=== PATIENT | male | born 1965 | race Caucasian/White ===

== ENCOUNTER 2021-04-16 09:57 | Inpatient (IN) | payer OTHER ==
[~2021-04-16] VITALS: Ht 185.4 cm; Wt 97.7 kg
[~2021-04-16 09:57] MED LIST: RINGERS SOLUTION,LACTATED 1,000 ML IV ONE
[2021-04-16] MEDS ORDERED: RINGERS SOLUTION,LACTATED 1,000 ML IV ONE ×2 (10:00→15:23)
[2021-04-16 11:48] LABS: COVID AG,FIA SOURCE NASOPHARYNGEAL
[2021-04-16] MEDS ORDERED: PROPOFOL 1000 MG/ISO-OSM 200 ML ONE (11:54)
[2021-04-16] MEDS ORDERED: ROCURONIUM BROMIDE 10 MG/ML 5 ML VIAL IVP ONE (12:00)
[2021-04-16] MEDS ORDERED: LIDOCAINE/PF 2% 5 ML VIAL IM ONE (12:00)
[2021-04-16] MEDS ORDERED: SUCCINYLCHOLINE CHLORIDE 20 MG/ML 10 ML VIAL IVP ONE (12:00)
[2021-04-16] MEDS ORDERED: PROPOFOL 1% 20 ML VIAL IVP ONE (12:00)
[2021-04-16] MEDS ORDERED: DEXAMETHASONE SOD PHOS 4 MG/ML VIAL IVP ONE (12:00)
[2021-04-16] MEDS ORDERED: ONDANSETRON HCL 4 MG/2 ML VIAL IVP ONE (12:00)
[2021-04-16] MEDS ORDERED: ACETAMINOPHEN 1000 MG/ISO-OSM 100 ML IV ONE (13:06)
[2021-04-16] MEDS ORDERED: PROPOFOL 1000 MG/ISO-OSM 100 ML ONE (15:55)
[2021-04-16] MEDS ORDERED: MEPERIDINE-PF 25 MG/ML VIAL IVP PRN (17:00)
[2021-04-16] MEDS ORDERED: FentaNYL CITRATE PF 100 MCG/2 ML VIAL IVP PRN (17:00)
[2021-04-16] MEDS ORDERED: HYDROmorphone 2 MG/ML VIAL IVP PRN (17:00)
[2021-04-16] MEDS ORDERED: OxyCODONE HCL/ACETAMINOPHEN 10-325 MG TABLET PO PRN (17:15)
[2021-04-16] MEDS ORDERED: HYDROCODONE/ACETAMINOPHEN 10-325 MG TABLET PO PRN (17:15)
[2021-04-16] MEDS ORDERED: BUPIVACAINE HCL/PF 0.5% 30 ML VIAL ONE (17:23)
[2021-04-16] MEDS ORDERED: BUPIVACAINE HCL/PF 0.25% 30 ML VIAL ONE (17:23)
[2021-04-16] MEDS ORDERED: HYDROmorphone 2 MG/ML VIAL ONE (18:53)
[2021-04-16 20:00] VITALS: BP 147/89
[2021-04-16] MEDS ORDERED: SODIUM CHLORIDE 0.9% 250 ML IV ONE (20:14)
[2021-04-16] MEDS: CeFAZolin 2 GM/DEXTROSE 50 ML IV SCH (20:19)
[2021-04-16] MEDS: OXYGEN THERAPY IH SCH (20:24)
[2021-04-16] MEDS: DEXAMETHASONE SOD PHOS 4 MG/ML VIAL IVP SCH (20:25)
[2021-04-16 23:31] VITALS: BP 145/98
[2021-04-16] MEDS: MORPHINE SULFATE 4 MG/ML SYRINGE IVP PRN (23:34)
[2021-04-17] MEDS: DEXAMETHASONE SOD PHOS 4 MG/ML VIAL IVP SCH ×2 (02:19→08:02)
[2021-04-17 04:00] VITALS: BP 152/91
[2021-04-17] MEDS: CeFAZolin 2 GM/DEXTROSE 50 ML IV SCH ×2 (04:27→11:01)
[2021-04-17] MEDS: MORPHINE SULFATE 4 MG/ML SYRINGE IVP PRN (04:51)
[2021-04-17] MEDS: OXYGEN THERAPY IH SCH (08:00)
[2021-04-17 08:24] VITALS: BP 150/90
[2021-04-17 10:00] VITALS: BP 137/78
[2021-04-17] MEDS ORDERED: CYCL10 PO (11:04)
[2021-04-17] MEDS ORDERED: HYDR-4396 PO ×2 (11:06)
[2021-04-17] MEDS ORDERED: METH4TAB3 PO (11:07)
[2021-04-17] MEDS ORDERED: KETAMINE HCL 50 MG/ML 10 ML VIAL IM ONE (12:54)
[2021-04-17] MEDS ORDERED: FentaNYL CITRATE PF 100 MCG/2 ML VIAL IM ONE (12:54)
[2021-04-17] MEDS ORDERED: MIDAZOLAM HCL 2 MG/2 ML VIAL IVP ONE (12:54)
== END 2021-04-17 12:55 | disposition home or self-care (01) | DRG 473 ==
LOC: 6S 09:57
PROVIDERS: ADMIT Orthopaedic Surgery Orthopaedic Surgery of the Spine; ATTEND Orthopaedic Surgery Orthopaedic Surgery of the Spine
PROC: 0RG20A0 Fusion of 2 or more Cervical Vertebral Joints with Interbody Fusion Device, Anterior Approach, Anterior Column, Open Approach (ICD-10-PCS; principal; 2021-04-17)
PROC: 0RT30ZZ Resection of Cervical Vertebral Disc, Open Approach (ICD-10-PCS; 2021-04-17)
PROC: 00NW0ZZ Release Cervical Spinal Cord, Open Approach (ICD-10-PCS; 2021-04-17)
PROC: 01N10ZZ Release Cervical Nerve, Open Approach (ICD-10-PCS; 2021-04-17)
PROC: 4A11X4G Monitoring of Peripheral Nervous Electrical Activity, Intraoperative, External Approach (ICD-10-PCS; 2021-04-17)
DX: M48.02 Spinal stenosis, cervical region (principal); M47.22 Other spondylosis with radiculopathy, cervical region; Z96.652 Presence of left artificial knee joint; Z20.822 Contact with and (suspected) exposure to COVID-19
CPT/HCPCS: 72040; 87081; J0131; J0330; J0690; J1100; J1170; J2250; J2270; J2405; J2704; J3010; J3490; J7050; J7120